=== PATIENT | female | born 1995 | race Caucasian/White ===

== ENCOUNTER 2020-06-03 07:21 | Emergency (ER) | payer OTHER ==
[~2020-06-03] VITALS: Ht 160 cm; Wt 127.0 kg
[~2020-06-03 07:21] MED LIST: AMOXICILLIN500 MG PO; PREDNISONE20 M1 PO
[2020-06-03] MEDS ORDERED: AMOXICILLIN875 MG PO (09:17)
== END 2020-06-03 09:31 | disposition home or self-care (01) ==
LOC: ED 07:21
DX: J02.0 Streptococcal pharyngitis (principal); B95.5 Unspecified streptococcus as the cause of diseases classified elsewhere; Z20.822 Contact with and (suspected) exposure to COVID-19